=== PATIENT | female | born 1945 | race Caucasian/White ===

== ENCOUNTER 2018-07-18 23:02 | Inpatient (IN) | payer MEDICARE ==
[~2018-07-18] VITALS: Ht 165.1 cm; Wt 70.5 kg
--- NOTE | ~2018-07-18 | CN ---
PATIENT NAME:ALLA TINEO. MEDICAL RECORD: [id number] : 47 LOCATION:D.M2 D.2116 ADMIT DATE: 07/19/18 ACCOUNT: [id number] CONSULTING PHYSICIAN: NELSON MONDRAGON MD REFERRING PHYSICIAN: ROBY TOM DO DATE OF CONSULTATION: 07/19/2018 DIAGNOSES: 1. Syncope. 2. Chest pain compatible with angina. 3. Chronic back pain with multiple previous back surgeries. HISTORY: Ms. Tineo has no cardiac history. She began complaining of chest pain that radiated to her jaw, told her yesterday. He was getting dressed to take her to the hospital. When he came back in the room, she was face down on the floor. He did CPR for less than a minute and this brought her back. She has not had any further episodes of chest pain. Since being on telemetry, she has had sinus bradycardia down to the 40s. She is on no AV blocking medication. She has had no heart rates less than 40, and with the 44 heart rate, she did not have any hemodynamic compromise or symptoms of syncope or near syncope. PHYSICAL EXAMINATION: GENERAL APPEARANCE: Well-nourished, well-developed, appears stated age. Level of distress, comfortable. PSYCHIATRIC: Mental status, alert, normal affect. Orientation, oriented to time, place and person. EYES: Lids and conjunctiva, noninjected. No discharge, no pallor. ENT: Lips, teeth, gums, normal dentition. Oropharynx, no cyanosis, no pallor. NECK: Carotid arteries, bilateral normal upstroke, no bruits, no thrills. JUGULAR VEINS: No jugular venous pressure or distention. CERVICAL LYMPH NODES: Nontender, nonenlarged. THYROID: Not enlarged. Nontender. No nodules. LUNGS: Respiratory effort, unlabored. CHEST: Normal curvature. No thoracic deformity. No chest wall tenderness. Percussion, resonant. Auscultation, clear. No wheezes, no rales, no rhonchi. CARDIOVASCULAR: Precordial exam, nondisplaced. No heaves or pericardial thrills. Rate and rhythm, regular. Heart sounds, normal S1, normal S2. No S3, no gallop, no rub. Systolic murmur, not heard. Diastolic murmur, not heard. EXTREMITIES: No cyanosis, no edema. Peripheral pulses, full and equal in all extremities, except as noted. No bruits appreciated. ABDOMEN: Soft, nondistended. Normal aorta. No bruit. Nontender. No masses. Liver, nontender, no hepatomegaly. Spleen, nontender, no splenomegaly. MUSCULOSKELETAL: No joint tenderness. No joint swelling. No erythema. NEUROLOGICAL: Normal gait, normal strength, normal tone. SKIN: Warm and dry. OVERALL IMPRESSION: Chest pain with syncope, very suggestive of dysrhythmia. We will proceed with coronary angiography. Continue telemetry. We will also get echocardiogram. Further care depends upon findings of these studies. TRANSINT:[id number] Voice Confirmation ID: [id number] DOCUMENT ID: [id number] CONSULT REPORT [id number] ALLA TINEO. NELSON MONDRAGON MD at 1950 CC: [id number] DICTATION DATE: 07/19/18 1111 CONSUMER ADVOCATE: 07/19/18 1137 DIS IN 07/20/18 [place] [id number] [place] [address]
--- NOTE | ~2018-07-18 | HEMODYNAMI ---
PATIENT:ALLA TINEO. MEDICAL RECORD: [id number] : 47 [facility]D. D.2116 [id number] ADMISSION DATE: 07/19/18 Generatedon:07/19/201812:53 Patient name: ALLA TINEO Patient #: [id number] SSN: : 1945 Date of study: 07/19/2018 Page: Of Hemodynamic Procedure Report Patient Data Patient Demographics Procedure consent was obtained First Name: ALLA Gender: Female Last Name: RIVKA : 1945 Middle Initial: ELIJAH. Age: 72 year(s) Patient #: [id number] Race: Unknown Additional ID: [id number] Contact details Address: [place] [address] State: [place] City: [place] Zip code: [address] Admission Admission Data Admission Date: 07/19/2018 Admission Time: 1:13 Room #: D.2116 Procedure Procedure Types Cath Procedure Diagnostic Procedure LHC LHC w/Coronaries Peripheral Cath Diagnostic Procedure Cath Peripheral Four Vessel Arteriogram Procedure Description Procedure Date Procedure Date: 07/19/2018 Procedure Start Time: 12:40 Procedure End Time: 12:49 Procedure Staff Name Function Severino Healy MD Performing Physician Lottie Vail RT Monitor Cristin Coley RN Nurse Juliette Lui RT Scrub Procedure Data Cath Procedure Fluoroscopy Diagnostic fluoroscopy Total fluoroscopy Time: 1.6 time: 1.6 min min Diagnostic fluoroscopy Total fluoroscopy dose: 332 dose: 332 mGy mGy Contrast Material Contrast Material Type Amount (ml) Isovue 300 68 Entry Location Entry Primary Successful Side Size Upsize Upsize Entry Closure Succes sful Closure Location (Fr) 1 (Fr) 2 (Fr) Remarks Device Remarks Femoral Right 5 Fr Exoseal artery Estimated blood loss: 5 ml Diagnostic catheters Device Type Used For End Catheter Placement MULTIPACK Pigtail 5 Fr LV Angiography catheter MULTIPACK JL 4.0 5Fr Left Coronary catheter Angiography MULTIPACK 3DRC 5Fr Right Coronary catheter Angiography Procedure Complications No complications Procedure Medications Medication Administration Route Dosage Oxygen etCO2 Nasal cannula 2 l/min Lidocaine 2% added to field 20 Heparin Flush Bag added to field 2 bags (1000units/500ml NS) 0.9% NaCl I.V. 100 ml/hr Versed I.V. 1 mg Fentanyl I.V. 50 mcg Versed I.V. 1 mg Fentanyl I.V. 50 mcg Hemodynamics Rest Heart Rate: 53 (bpm) Pressure Samples Time Site Value (mmHg) Purpose Heart Use Rate(bpm) 12:42 LV 132/10,14 Snapshot 67 Snapshots Pre Cath Intra NCS Post Cath Vital Signs Time Heart Resp SPO2 etCO2 NIBP (mmHg) Rhythm Pain Sedation Rate (ipm) (%) (mmHg) Status Level (bpm) 12:30:17 54 15 100 30.8 119/75(98) NSR 0 (11) 9(A) , No pain 12:34:57 55 14 99 23.3 116/69(89) NSR 0 (11) 9(A) , No pain 12:39:40 59 14 99 30.8 126/76(105) NSR 0 (11) 9(A) , No pain 12:44:23 70 15 97 24.8 122/75(93) NSR 0 (11) 9(A) , No pain 12:49:04 71 13 99 30.8 126/71(91) NSR 0 (11) 9(A) , No pain 12:51:17 72 13 99 24.1 118/67(94) NSR 0 (11) 10(A) , No pain Medications Time Medication Route Dose Verified Delivered Reason Notes Eff ectiveness by by 12:29:30 Oxygen etCO2 2 Severino Liaoie used for Nasal l/min Niraj Coley RN procedure cannula 12:30:16 Lidocaine 2% added 20ml Severino Haq for local to vial Niraj Healy MD anesthetic field 12:30:23 Heparin Flush added 2 Severino Severino used for Bag to bags Niraj Healy MD procedure (1000units/500ml field NS) 12:30:31 0.9% NaCl I.V. 100 Severino Liaoie Per ml/hr Niraj Coley RN physician 12:39:59 Versed I.V. 1 mg Severino Amaral for Niraj Coley RN sedation 12:40:04 Fentanyl I.V. 50 Severino [facility] [place] Niraj Coley RN sedation 12:45:26 Versed I.V. 1 mg Severino Coley RN sedation 12:45:31 Fentanyl I.V. 50 Severino [facility] [place] Niraj Coley RN sedation Procedure Log Time Note 12:09:20 Diagnostic Cath status Elective 12:09:23 Lottie Vail RT(R) sent for patient. Start room use. 12:09:25 Time tracking: Call back (After hours or weekends) 12::31 Plan of Care:Hemodynamics will remain stable., Cardiac rhythm will remain stable., Comfort level will be maintained., Respiratory function will remain adequate., Patient/ family verbilizes understanding of procedure., Procedure tolerated without complication., Recovers from procedure without complications.. 12:19:12 Patient received from Med II to CCL 1 Alert and oriented. Tansferred to table in Supine position. 12:19:13 Warm blankets applied, and geovanni hugger turned on for patient comfort. 12:19:14 Correct patient and procedure confirmed by team. 12:19:15 Signed procedure consent form obtained from patient. 12:19:16 Vital chart was started 12:19:17 Baseline sample Acquired. 12:19:22 Rhythm: sinus rhythm 12:19:23 Full Disclosure recording started 12:19:28 H&P Date Dictated: 07/19/2018 Within 30 days and on chart., H&P Addendum completed by physician on day of procedure. (MUST COMPLETE FOR ALL OUTPATIENTS). 12:19:30 Pre-procedure instructions explained to patient. 12:19:30 Pre-op teaching completed and patient verbalized understanding. 12:19:31 Family in waiting room. 12:19:34 Patient NPO since Midnight. 12:19:35 Is the patient allergic to Iodine/contrast media? No. 12:19:37 Was the patient premedicated? No 12:19:38 Is patient on blood thinner?No 12:19:39 Patient diabetic? No. 12:19:42 Previous problem with sedation/anesthesia? No ? 12:19:44 Snore? Yes 12:19:45 Sleep apnea? No 12:19:46 Deviated septum? No 12:19:46 Opens mouth fully? Yes 12:19:47 Sticks out tongue? Yes 12:19:49 Airway obstruction? No ? 12:19:54 Dentures? No ? 12:19:58 Pre procedure: right dorsailis pedis pulse 1+ Palpable, but thready & weak; easily obliterated 12:20:02 Pre procedure: left dorsailis pedis pulse 1+ Palpable, but thready & weak; easily obliterated 12:20:09 Patient pain scale 0/10 ?. 12:20:22 IV patent on arrival in left forearm with 0.9% NaCl at [facility]. 12:20:25 Lab results completed and on chart. 12:20:31 Right groin area was prepped with chlora-prep and draped in sterile fashion 12::32 Alarms reviewed by R. N. 12::32 Sharps counted by scrub and verified by R.N. 12::34 Physician paged 12:29:30 Oxygen 2 l/min etCO2 Nasal cannula was administered by Cristin Coley RN; used for procedure; 12:30:16 Lidocaine 2% 20ml vial added to field was administered by Severino Healy MD; for local anesthetic; 12:30:23 Heparin Flush Bag (1000units/500ml NS) 2 bags added to field was administered by Severino Healy MD; used for procedure; 12:30:31 0.9% NaCl 100 ml/hr I.V. was administered by Cristin Coley RN; Per physician; 12:33:27 Zero performed for pressure channel P1 12:39:46 Physician arrived 12:39:46 --------ALL STOP TIME OUT------ 12:39:47 Final Timeout: patient, procedure, and site verified with staff and physician. All members of the team are in agreement. 12:39:49 Right groin site verified by team. 12:39:52 Physical assessment completed. ASA score P 2 - A patient with mild systemic disease as per Severino Healy MD. 12:39:56 Sedation plan: IV Moderate Sedation Medication:Versed, Fentanyl 12:39:59 Versed 1 mg I.V. was administered by Cristin Coley RN; for sedation; 12:40:04 Fentanyl 50 mcg I.V. was administered by Cristin Coley RN; for sedation; 12:40:41 Use device set Femoral Dx 12:40:42 ACIST Syringe (11912) opened to sterile field. 12:40:43 Bag Decanter () opened to sterile field. 12:40:43 Medline Cath Pack ([id number]) opened to sterile field. 12:40:44 DIAGNOSTIC WIRE .035 260cm J wire (257954) opened to sterile field. 12:40:45 ACIST Hand Control (11820) opened to sterile field. 12:40:46 ACIST Manifold (68228) opened to sterile field. 12:40:46 DIAGNOSTIC Multipack 5Fr catheter set (DC0157) opened to sterile field. 12:40:49 Tegaderm 4 x 4 (1626W) opened to sterile field. 12:40:50 SHEATH Prelude 5Fr 0.035 (PDU-4R-24-035) opened to sterile field. 12:40:54 Procedure started. 12:40:57 Local anesthetic to right femoral artery with Lidocaine 2% by Severino Healy MD.INITIAL ACCESS ONLY 12:41:06 A 5 Fr sheath was inserted into the Right Femoral artery 12:41:53 A MULTIPACK Pigtail 5 Fr catheter was advanced over the wire and used for LV Angiography. 12:43:00 LV hemodynamics recorded. 12:43:01 LV gram done using CARDENAS 12:43:03 Injector settings: Ml/sec: 5, Volume: 15, 12:43:10 EF : 50 % 12:43:32 Catheter removed. 12:43:39 A MULTIPACK JL 4.0 5Fr catheter was advanced over the wire and used for Left Coronary Angiography. 12:43:59 LCA angiography performed. 12:44:04 Injector settings: Ml/sec: 3, Volume: 6, 12:44:33 Catheter removed. 12:44:42 A MULTIPACK 3DRC 5Fr catheter was advanced over the wire and used for Right Coronary Angiography. 12:45:21 RCA angiography performed. 12:45:26 Versed 1 mg I.V. was administered by Cristin Coley RN; for sedation; 12:45:29 Injector settings: Ml/sec: 3, Volume: 6, 12:45:31 Fentanyl 50 mcg I.V. was administered by Cristin Coley RN; for sedation; 12:45:42 Bilateral carotid angiography performed. 12:46:40 Catheter removed. 12:46:43 EXOSEAL 5Fr (EX500) opened to sterile field. 12:47:03 Sheath removed intact; hemostasis achieved with Exoseal to the Right Femoral artery. 12:47:05 Procedure ended.(Physican Out) 12:47:22 Fluoroscopy time 01.60 minutes. 12:47:29 Fluoroscopy dose: 332 mGy 12:47:29 Flurop Dose total: 332 12:47:33 Contrast amount:Isovue 300 68ml. 12:48:19 Sharps counted by scrub and verified by R.N. 12:48:21 Insertion/operative site no bleeding no hematoma. 12:48:24 Post-op/insertion site Right Femoral artery dressed using a 4 x 4 and Tegaderm. 12:48:26 Post right femoral artery:stable 12:48:28 Post Procedure Pulses reassessed and unchanged 12:48:30 Post procedure rhythm: unchanged. 12:48:33 Estimated blood loss: 5 ml 12:48:35 Post procedure instruction explained to patient.Patient verbalizes understanding. 12:48:35 Patient needs reinforcement of post procedure teaching. 12:49:02 Procedure type changed to Cath procedure, Diagnostic procedure, LHC, LHC w/Coronaries, Peripheral Cath Diagnostic Procedure, Cath Peripheral, Four Vessel Arteriogram 12:49:03 Procedure and supply charges have been captured, reviewed, submitted and are correct. 12:49:07 Procedure Complication : No complications 12:49:10 Vital chart was stopped 12:49:10 See physician's report for complete and final results. 12:49:12 Report given to [facility]. 12:49:16 Patient transfered to [facility] with Stretcher. 12:49:19 Procedure ended. 12:49:19 Full Disclosure recording stopped 12:49:23 End room use (Document Last) Device Usage Item Name Manufacture Quantity Catalog Number Hospital Part Current M inimal Lot# / Charge Number Stock Stock Serial# Code ACIST Syringe Acist 1 46575 929305 986351 539049 2 0 (58661) [employer] Bag Decanter Microtek 1 839403 09328 286550 5 () Medical Inc. Medline Cath Cardinal 1 [id number] 159643 [address] [facility] ([id number]) DIAGNOSTIC WIRE St Del 1 071355 319093 272192 642555 3 0 .035 260cm J wire (752580) ACIST Hand Acist 1 17364 343146 059238 287248 5 Control (33605) [employer] ACIST Manifold Acist 1 94487 939284 928640 274562 5 (66877) [employer] DIAGNOSTIC Cardinal 1 [id number] 028036 55114 643002 3 0 Multipack 5Fr Health catheter set ([id number]) Tegaderm 4 x 4 3M 1 1626W 404991 437934 521402 5 (1626W) SHEATH Prelude Merit 1 [id number] 355677 293772 893713 5 5Fr 0.035 Medical ([id number]) MULTIPACK Cardinal 1 877341 5 Pigtail 5 Fr Health catheter MULTIPACK JL Cardinal 1 [id number] 5 4.0 5Fr Health catheter MULTIPACK 3DRC Cardinal 1 614141 5 5Fr catheter Health EXOSEAL 5Fr Cardinal 1 EX500 599247 618719 384553 1 0 (EX500) Health Signature Audit [place] Stage Time Signature Unsigned Intra-Procedure 07/19/2018 Lottie Vail 12:53:48 PM RT(R) Signatures Monitor : Lottie Vail RT Signature : Date : Time : [facility] [address] [place] [address]
--- NOTE | ~2018-07-18 | HP ---
PATIENT: ALLA TINEO. MEDICAL RECORD: [id number] ACCOUNT: [id number] LOCATION:[place] [id number] : 46 ADMISSION DATE: 07/19/18 HISTORY AND PHYSICAL EXAMINATION HISTORY: A 72-year-old female presented to the Emergency Room with a syncopal episode. found her face down at home, unresponsive, did perform brief CPR. She quickly aroused, brought in for evaluation. No cardiac history. Denies any acute illness. PAST MEDICAL HISTORY: Significant for anxiety, depression, hypothyroidism, and chronic back pain. CURRENT MEDICATIONS: Listed as Neurontin 300 mg t.i.d., Valium 10 mg b.i.d., oxycodone 10/325 q. 6 p.r.n. pain, Lipitor 20 mg daily, Synthroid 88 mcg daily, Uroxatral 10 mg daily, Soma 350 mg at bedtime, Ambien 10 mg at bedtime, Xanax 1 mg p.o. daily, and Lexapro 10 mg daily. REVIEW OF SYSTEMS: CONSTITUTIONAL: No acute change in weight or appetite. HEENT: No cephalgia, visual changes, tinnitus, epistaxis, or dysphagia. Syncopal event as noted above. PULMONARY: Denies hemoptysis. Denies shortness of breath. GASTROINTESTINAL: Denies hematemesis, hematochezia, or melena. CARDIOVASCULAR: Denies chest pain presently. Reported anginal symptoms prior to syncopal episode. MUSCULOSKELETAL: Chronic back pain, on multiple medications. ALLERGIES: SULFA. PHYSICAL EXAMINATION: GENERAL: The patient is lethargic and somewhat sedated, but responsive. 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 VITAL SIGNS: Temperature 97.5, blood pressure 112/77, heart rate 83, respirations 18, O2 sat 96% on 2 liters via nasal cannula. HEENT: Head is normocephalic and atraumatic. Eyes; pupils are equal, round, and reactive. Ears; canals patent. TMs are intact. Nose; nares patent without drainage. Throat; no erythema and no exudate. NECK: Supple. No lymphadenopathy. HEART: Regular rate and rhythm. LUNGS: Clear to auscultation bilaterally. Breathing is nonlabored. ABDOMEN: Soft and nontender. Bowel sounds in all 4 quadrants. EXTREMITIES: Present times 4. Trace edema. NEUROLOGIC: Limited exam due to post-catheterization sedation but no appreciable deficits. Arouses easily to verbal stimuli and answers appropriately. DIAGNOSTIC DATA: EKG shows sinus bradycardia. I discussed cath results with Dr. Healy. She had a negative 4-vessel and negative heart cath. No obstructive disease. LABORATORY DATA: CBC; white count 5.8, hemoglobin 11.5, hematocrit 35.5, and platelets 191. Chemistry shows sodium of 142, potassium 4.0, chloride 108, bicarb 28, BUN 21, and creatinine 1.4. HISTORY AND PHYSICAL [id number] ALLA TINEO. ASSESSMENT AND PLAN: Witnessed syncopal event. She did have some slow heart rates. We will monitor the patient on telemetry. Negative 4-vessel and negative heart cath. Possible relation to event related to pain and anxiolytic medications. We will continue to monitor the patient. Supportive care. TRANSINT:[id number] Voice Confirmation ID: [id number] DOCUMENT ID: [id number] EFRAÍN MCGOVERN DO at 1440 CC: [id number] DICTATION DATE: 07/19/18 1334 PASTA PRESS OPERATOR: 07/19/18 1437 ADM IN [facility] [address] [place] [place] [id number]
--- NOTE | ~2018-07-18 | OP ---
PATIENT NAME: ALLA TINEO. MEDICAL RECORD: [id number] :47 LOCATION:D.M2 D.2116 ADMISSION DATE:07/19/18 SURGEON: NELSON MONDRAGON MD DATE OF OPERATION: 07/19/2018 PROCEDURES: 1. Left heart catheterization. 2. Selective coronary angiography. 3. Left ventriculogram. 4. Four-vessel carotid and vertebral angiography. INDICATION: Syncope, chest pain. PROCEDURE IN DETAIL: After informed consent was obtained and after a detailed description of risks, benefits as well as alternative therapies, the patient elected to proceed with angiogram and heart catheterization. The right femoral area was prepped and draped in normal sterile fashion. Right femoral artery was cannulated via modified Seldinger technique with placement of 5-[place] sheath. All catheters exchanged through this sheath. FINDINGS: The left ventriculogram was performed in standard 30-degree CARDENAS view, reveals good cardiac wall motion throughout all segments. Overall ejection fraction estimated 60%. SELECTIVE CORONARY ANGIOGRAPHY: Left main, left anterior descending, left circumflex, right coronary artery are smooth-walled vessels. No angiographic evidence of coronary artery disease. FOUR-VESSEL CAROTID AND VERTEBRAL ANGIOGRAPHY: There was subselection of each subclavian as well as the left carotid. FINDINGS: RIGHT SIDE: The common internal and external carotids are smooth-walled with no evidence of carotid vascular disease. Vertebral artery has no evidence of vertebral artery disease. LEFT SYSTEM: The common internal and external carotids are smooth-walled with no evidence of carotid vascular disease. Vertebral artery has no significant disease as well. OVERALL IMPRESSION: 1. No significant coronary artery disease is present. 2. No significant carotid disease is present. 3. Normal LV function. No reason to think symptomatology is secondary to cardiovascular. TRANSINT:[id number] Voice Confirmation ID: [id number] DOCUMENT ID: [id number] OPERATIVE REPORT [id number] ALLA TINEO. NELSON MONDRAGON MD at 1950 CC: [id number] DICTATION DATE: 07/19/18 1251 DISTRICT LEADER: 07/19/18 1256 DIS IN 07/20/18 [facility] [address] [place] [address]
[~2018-07-18 23:02] MED LIST: AMBIEN10 MG PO; LEXAPRO10 MG PO; LIPITOR20 MG PO; MEDROL DOSE PACK4 MG PO; NEURONTIN 300300 MG PO; PERCOCET 10/3251 TA1 PO; SOMA350 MG PO; SYNTHROID88 MCG PO; UROXATRAL10 MG PO; VALIUM10 MG PO; XANAX1 MG PO
[2018-07-18 23:59] LABS: BASOPHILS 0.3 % (0-2); EOSINOPHILS 3.4 % (0-7); HEMATOCRIT 35.5 % (36.0-48.0); HEMOGLOBIN 11.5 g/dL (12-16); IMMATURE GRANULOCYTES 0.3 % (0-5); LYMPHOCYTES 25.6 % (15-50); MCH 28.9 pg (26.0-34.0); MCHC 32.4 g/dL (31.0-37.0); MCV 89.2 fL (80.0-100.0); MEAN PLATELET VOLUME 9.7 fL (7.4-10.4); MONOCYTES 7.9 % (2-11); NEUTROPHILS 62.5 % (40-80); PLATELET COUNT 191 10x3/uL (130-400); RBC 3.98 10x6/uL (4.00-5.40); RDW 14.8 % (11.5-14.5); WBC 5.8 10x3/uL (4.8-10.8)
[2018-07-19] VITALS (7 sets, daily range): BP systolic 101–151; BP diastolic 45–93; Ht 165.1 cm; Wt 70.5 kg
[2018-07-19 00:03] LABS: APTT 27.3 SECONDS (22.8-39.4); INR 0.98 (0.85-1.17); PROTIME 12.6 SECONDS (11.6-15.0)
[2018-07-19 00:05] LABS: ALKALINE PHOSPHATASE 80 U/L (46-116); ALT (SGPT) 20 U/L (10-68); BILIRUBIN - TOTAL 0.29 mg/dL (0.2-1.3); CALC OSMOLALITY 285 mosm/kg (275-300); CALCIUM 8.7 mg/dL (8.5-10.1); CARBON DIOXIDE 28.1 mmol/L (21.0-32.0); CHLORIDE - SERUM 108 mmol/L (98-107); CREATININE - SERUM 1.4 mg/dL (0.6-1.3); GLUCOSE 104 mg/dL (74-106); PROTEIN - SERUM 7.1 g/dL (6.4-8.2); SODIUM 142 mmol/L (136-145); UREA NITROGEN 21 mg/dL (7-18); eGFR NON AFRICAN AMERICAN 39 mL/min (90-120)
[2018-07-19 00:13] LABS: CREATINE KINASE 67 UL (21-215); PRO BNP 269 pg/mL (0-125)
[2018-07-19 00:14] LABS: TROPONIN-I < 0.017 ng/mL (0.000-0.060)
[2018-07-19] MEDS ORDERED: HYDROCODONE-APA1 TAB PO (01:48)
[2018-07-19] MEDS ORDERED: LIPITOR40 MG PO (01:49)
[2018-07-20 00:43] VITALS: BP 150/57
[2018-07-20 04:34] LABS: BASOPHILS 0.4 % (0-2); EOSINOPHILS 3.8 % (0-7); HEMATOCRIT 34.3 % (36.0-48.0); HEMOGLOBIN 10.8 g/dL (12-16); IMMATURE GRANULOCYTES 0.2 % (0-5); LYMPHOCYTES 34.3 % (15-50); MCH 28.6 pg (26.0-34.0); MCHC 31.5 g/dL (31.0-37.0); MONOCYTES 8.8 % (2-11); NEUTROPHILS 52.5 % (40-80); PLATELET COUNT 187 10x3/uL (130-400); RBC 3.77 10x6/uL (4.00-5.40); RDW 14.9 % (11.5-14.5); WBC 5.6 10x3/uL (4.8-10.8)
[2018-07-20 04:58] LABS: ALBUMIN 3.3 g/dL (3.4-5.0); ANION GAP 12.3 mmol/L (8-16); BILIRUBIN - TOTAL 0.28 mg/dL (0.2-1.3); CALCIUM 8.2 mg/dL (8.5-10.1); CARBON DIOXIDE 25.5 mmol/L (21.0-32.0); CREATININE - SERUM 1.2 mg/dL (0.6-1.3); MAGNESIUM - SERUM 2.3 mg/dL (1.8-2.4); PHOSPHOROUS 3.5 mg/dL (2.5-4.9); POTASSIUM - SERUM 3.8 mmol/L (3.5-5.1); PROTEIN - SERUM 6.2 g/dL (6.4-8.2)
[2018-07-20 05:51] VITALS: BP 134/60
[2018-07-20 07:49] VITALS: BP 172/87
== END 2018-07-20 10:35 | disposition home or self-care (01) | DRG 287 ==
LOC: D.ER 23:02 → D.M2 07-19 01:13
PROVIDERS: Emergency Medicine; Family Medicine; Internal Medicine Interventional Cardiology
PROC: 4A023N7 Measurement of Cardiac Sampling and Pressure, Left Heart, Percutaneous Approach (ICD-10-PCS; 2018-07-19)
PROC: B3151ZZ Fluoroscopy of Bilateral Common Carotid Arteries using Low Osmolar Contrast (ICD-10-PCS; 2018-07-19)
PROC: B3121ZZ Fluoroscopy of Left Subclavian Artery using Low Osmolar Contrast (ICD-10-PCS; 2018-07-19)
PROC: B2111ZZ Fluoroscopy of Multiple Coronary Arteries using Low Osmolar Contrast (ICD-10-PCS; principal; 2018-07-19 12:09)
PROC: B2141ZZ Fluoroscopy of Right Heart using Low Osmolar Contrast (ICD-10-PCS; 2018-07-19 12:09)
DX: R55 Syncope and collapse (principal); R07.9 Chest pain, unspecified; F41.9 Anxiety disorder, unspecified; F32.9 Major depressive disorder, single episode, unspecified; E03.9 Hypothyroidism, unspecified; G89.29 Other chronic pain; T50.995A Adverse effect of other drugs, medicaments and biological substances, initial encounter

== ENCOUNTER 2018-08-24 08:58 | Inpatient (IN) | payer MEDICARE, OTHER ==
[~2018-08-24] VITALS: Ht 167.6 cm; Wt 71.1 kg
--- NOTE | ~2018-08-24 | EC ---
PATIENT:ALLA TINEO DATE OF SERVICE: 08/24/18 SEX: F MEDICAL RECORD: [id number] DATE OF : 47 LOCATION:[place] [address] AGE OF PATIENT: 73 ADMISSION DATE: 08/24/18 REFERRING PHYSICIAN: INTERPRETING PHYSICIAN: NELSON HEALY MD ECHOCARDIOGRAM REPORT ECHO CHARGES 5 ECHO LIMITED Date: 08/25/18 CLINICAL DIAGNOSIS: SOB PE ECHOCARDIOGRAPHIC MEASUREMENTS (adult normal given) AC root (d.<3.7cm) cm LV Septum d (<1.2 cm> cm Valve Excursion cm LV Septum (systole) cm Left Atria (s.<4.0cm> cm LVPW d(<1.2cm) cm RV (d.<2.3cm) cm LVPW (sytole) cm LV diastole(<5.6CM) cm MV E-F(>70mm/sec) cm LV systole cm LVOT Diameter cm MV exc.(>10mm) cm Est.ejection fraction (50-75%) % DOPPLER: LVIT cm/sec A cm/sec E cm/sec LA cm/sec RVSP 34.2 mmHg LVOT cm/sec AOP1/2T m/s Asc. Ao cm/sec RVOT cm/sec RA cm/sec PA cm/sec AV Gradient Peak mmHg AV Mean mmHg AV Area cm MV Gradient Peak mmHg MV Mean mmHg MV Area cm COMMENTS: Supply Chain Business Analyst: Leonard MCKINLEY Molecular Physicist: Sahara Healy TAPE# PACS Pericardial Effusion N DATE OF SERVICE: 08/25/2018 DATE OF SERVICE: 08/25/2018 FINDINGS: 1. Left ventricular chamber size is within normal limits. Left ventricular systolic function is normal. Overall ejection fraction estimated at 60%. 2. Left atrium, right atrium, and right ventricle chamber sizes are within normal limits. 3. Valvular structures have normal structure and motion. ECHOCARDIOGRAM REPORT [id number] ALLA TINEO 4. Doppler interrogation reveals only mild tricuspid regurgitation, no other valvular insufficiency or stenosis. 5. No evidence of pericardial effusion or left ventricular thrombus. TRANSINT:[id number] Voice Confirmation ID: [id number] DOCUMENT ID: [id number] NELSON HEALY MD at 0924 CC: [id number] DICTATION DATE: 08/26/18 1159 PHLEBOTOMIST PRN: 08/26/18 1209 ADM IN [facility] [address] [facility]
--- NOTE | ~2018-08-24 | OP ---
PATIENT NAME: ALLA TINEO MEDICAL RECORD: [id number] :47 LOCATION:D.I D.CV08 ADMISSION DATE:08/24/18 SURGEON: DAISHA COLLINS MD DATE OF OPERATION: 08/30/2018 SURGEON: Daisha Collins MD ANESTHESIA: General, Dr. Greer. SECOND GRADE TEACHER: Dr. Rodriguez. OPERATION PERFORMED: 1. Right video-assisted thoracoscopy. 2. Right lower lobe biopsy. 3. Pleural biopsy. 4. Pleurodesis, mechanical and talc. 5. Culture of pleural fluid for aerobe, anaerobe, TB, and fungus. Left and right bronchioalveolar lavage for aerobe, anaerobe, TB, and fungus as well as cytology. Flexible fiberoptic bronchoscopy demonstrated no endobronchial lesions. ESTIMATED BLOOD LOSS: Less than 20 mL. DESCRIPTION OF PROCEDURE: After informed consent, adequate preoperative medication evaluation, the patient was brought to the operating room, placed on the table in the supine position. After induction of general endotracheal anesthesia and application of appropriate monitoring devices and placement of a double lumen tube, the patient was turned in a left lateral decubitus position, protecting the neurological structures and pressure points. The right chest was prepped and draped in a sterile field, utilizing Betadine scrub, alcohol, and Betadine solution. A Betadine-impregnated drape was also used. The mid axillary line identified in the ninth interspace. An incision was made and a trocar placed. The camera was inserted. The chest was examined and the fluid was removed for cultures and cytology. The lung was abnormal and texture with multiple nodules utilizing an Endo-FLASH stapler after 2 more ports were placed, one anteriorly and one posteriorly. The lung was biopsied, placed in a pouch and sent to pathology for frozen section. The remainder is sent for permanent section. The small amount of tissue resected off this specimen was also sent for aerobe, anaerobe, TB, and fungus. Attention was then turned toward the chest wall. The chest wall lesions were biopsied and sent to pathology for permanent section. The chest was again irrigated. There was no bleeding. Utilizing Marlex, a mechanical pleurodesis was performed followed by a talc pleurodesis. A #28 chest tube was placed in the anterior port, confirmed with the camera. Instrument count and sponge counts were correct times 2. The 2 extra port sites were closed with interrupted 2-0 Ethibond sutures. Sterile dressings were applied. The patient was turned supine and the endotracheal tube was exchanged for a large tracheal tube. The patient underwent flexible fiberoptic bronchoscopy. There were no endobronchial lesions noted. A right and left bronchial alveolar lavage was performed and the cultures sent for aerobe, anaerobe, TB, and fungus. A separate specimen from each were sent for cytology. The patient was awakened, tolerated the procedure well and was transferred to the ICU in stable condition. TRANSINT:[id number] Voice Confirmation ID: [id number] DOCUMENT ID: [id number] OPERATIVE REPORT [id number] ALLA TINEO EDWARD MD at 1216 CC: [id number] DICTATION DATE: 08/30/18 125 APPLIANCE WORKER: 08/30/18 1709 ADM IN [facility] [address] [place] [address]
--- NOTE | ~2018-08-24 | MORECARE ---
CASE MANAGEMENT DISCHARGE SUMMARY PATIENT: ALLA CROW UNIT: [id number] ADM DATE: 08/24/18 AGE: 73 : [birth year] SEX: F ROOM/BED: [facility] AUTHOR: ALICIADOC PHYSICIAN: REFERRING PHYSICIAN: NELSON TOM DO DATE OF SERVICE: 09/07/18 Discharge Plan Patient Name: ALLA CROW Facility: [facility]:[place] : 1945 Planned Disposition: Home Anticipated Discharge Date: Discharge Date: Expected LOS: Initial Reviewer: [email or web address] Initial Review Date: 08/25/2018 Generated: 09/07/18 11:10 am Comments DCP- Discharge Planning Updated by [id number]: Erin Alexander on 09/07/18 9:[address] IMM explained and served 09/07/18 @ 0918. Patient denies any discharge needs. CM will continue to follow and assist with discharge planning / needs. DCP- Discharge Planning Updated by [id number]: Marisol Beckford on 08/25/18 2:[address] Patient Name: ALLA CROW Admission Status: Elective Accout number: [id number] Admission Date: 08-24-2018 : 1945 Admission Diagnosis: Attending: Nelson Tom Current LOS: 1 Anticipated DC Date: Planned Disposition: Home Primary Insurance: MEDICARE A & B Discharge Planning Comments: CM met with patient to discuss discharge planning. Verbal permission received to discuss discharge planning with her and daughter in the room. She states she lives with her and is independent with all ADL's and IADL's. States she does not have any DME or need any DME at this time. States she does not have DME company preference. States she has had HHS in the past, but declines HHS at this time. States she is unsure which agency she has used in the past. She is wearing oxygen at 4L [place] at this time. CM will continue to follow and evaluate for needs on discharge. Copy Cutter: Marisol Beckford DCPIA - Discharge Planning Initial Assessment Updated by [email or web address]: Marisol Beckford on 08/25/18 3:44 pm * Is the patient Alert and Oriented? Yes * How many steps to enter\exit or inside your home? 1/0 * PCP Jose * Pharmacy [facility] [address] * Preadmission Environment Home with Family * ADLs Independent * Equipment None * List name and contact numbers for known caregivers / representatives who currently or will assist patient after discharge: Herbert Crow - - [phone] Maya - daughter - [phone] * Verbal permission to speak to the caregivers and representatives has been obtained from the patient. Yes * Community resources currently utilized None * Additional services required to return to the preadmission environment? No * Can the patient safely return to the preadmission environment? Yes * Has this patient been hospitalized within the prior 30 days at any hospital? No Coverage Notice Reviewer: [email or web address] Nikia Alexander Notice Issued Date-Time: 09/07/2018 9:18 Notice Type: IM Discharge Notice Notice Delivered To: Patient Relationship to Patient: Self Record Retrieval Specialist Name: Delivery Method: HAND - Hand Delivered Kavitha Days: Prior Verbal Notification: Recipient Understood Notice: Yes Recipient Signature: Yes Med Rec Note Co-signed by Attending: Coverage Notice Comment: Last DP export: 08/25/18 2:53 Patient Name: ALLA CROW Page [id number] at 1011 All edits/amendments must be made on the electronic document DICTATION DATE: 09/07/18 1010 HEATSET WINDER OPERATOR: IKE 09/07/18 1010 RPT#: [id number] DC DATE: STATUS: ADM IN [facility] [address] [place] [address] END OF REPORT
--- NOTE | ~2018-08-24 | HP ---
PATIENT: ALLA TINEO MEDICAL RECORD: [id number] ACCOUNT: [id number] LOCATION:D.MS Camargo5 : [birth year] ADMISSION DATE: 08/24/18 PCP: ROBY TOM DO HISTORY AND PHYSICAL EXAMINATION HISTORY: Ms. Tineo is a 73-year-old lady who was seen in the office today. She had been complaining of cough for several days with shortness of breath. She is being treated for some low back issues and has been getting some injection. She has a history of low back surgery several years ago. She had been hospitalized for a syncopal episode about a month ago. At that point, she had undergone a heart cath with Dr. Healy of 4 vessels with negative heart cath. She was monitored for bradycardia and there was none. At that point, there was no shortness of breath or chest discomfort and she was discharged home. She today had got an x-ray prior to coming in the office, which did show some right pleural effusion, atelectasis versus possible infiltrate. On evaluation here, she was tachypneic. Her sats were holding around 94%, but she appeared to be in qsmt-vv-onrliood distress. We sent her over for a CTA of the chest, which showed PE on the right, and she was admitted for further evaluation and treatment. PAST MEDICAL HISTORY: She does have past medical history of hypertension, hypothyroidism, hyperlipidemia, history of depression, and GERD in the past. She has had some situational anxiety in her life over the last 6-9 months, which has been quite severe. She has also history of some chronic low back pain with history of lumbar surgery in the past. PAST SURGICAL HISTORY: Her other pertinent surgical history is hysterectomy in 2005. SOCIAL HISTORY: She does not smoke, use alcohol or drugs. MEDICATIONS: Include alfuzosin ER 10 mg daily, alprazolam p.r.n., atorvastatin 40 mg daily, Lexapro 20 mg daily, gabapentin 300 mg daily, hydrocodone 10/325 q. 8 hours p.r.n., levothyroxine 88 mcg daily, pantoprazole 40 mg daily, and Ambien at bedtime p.r.n. ALLERGIES: SHE HAS ALLERGIES TO CODEINE, WHICH CAUSED NAUSEA; AND SULFA. REVIEW OF SYSTEMS: CONSTITUTIONAL: She does complain of weakness. HEENT: She denies any visual or auditory changes. No sore throat or dysphagia. CARDIOPULMONARY: She states she has had a little bit of discomfort in her upper back. She denies any hemoptysis. She has been short of breath. She has had some cough. GASTROINTESTINAL: She denies any abdominal pain, nausea, vomiting, or diarrhea. NEUROLOGIC: She complains of some generalized weakness, but no numbness or tingling. She had the short, witnessed syncopal event about a month ago. PHYSICAL EXAMINATION: VITAL SIGNS: Today, pulse 75, blood pressure 132/74, respirations of 22, temperature 98.6, and pulse ox 94% on room air. HEENT: Unremarkable. NECK: Supple. No JVD. HEART: She has S1 and S2. No murmurs or rubs. LUNGS: She has some decreased breath sounds at the right base. HISTORY AND PHYSICAL [id number] ALLA TINEO ABDOMEN: Soft, nontender, and nondistended. EXTREMITIES: She has no peripheral edema noted. ASSESSMENT AND PLAN: A 73-year-old female with; 1. Acute pulmonary embolism. She has large right pleural effusion with some compressive atelectasis. She has right upper lobe pulmonary emboli. Venous Doppler does confirm left popliteal and posterior tibial DVT. Echo is pending. We are starting her on nfv-rgizpxmwr-cducru heparin injection. We are going to consult pulmonary. At this point, with her possible infectious component as well, we are going to continue the antibiotic, IV Levaquin. We are going to ask interventional radiology to see her for possible thoracentesis and also to discuss IVC filter. 2. For her low back pain, we are going to continue with her home [place]. 3. GERD and peptic ulcer disease prophylaxes. Continue with pantoprazole. 4. Hypothyroidism. Continue with home medications. We will continue to follow clinically. TRANSINT:[id number] Voice Confirmation ID: [id number] DOCUMENT ID: [id number] ROBY TOM DO at 0649 CC: [id number] DICTATION DATE: 08/24/181754 RESIDENTIAL CARPET INSTALLER: 08/24/18 193 ADM IN [facility] [address] [place] [address]
--- NOTE | ~2018-08-24 | MORECARE ---
CASE MANAGEMENT DISCHARGE SUMMARY PATIENT: ALLA CROW UNIT: [id number] ADM DATE: 08/24/18 AGE: 73 : [birth year] SEX: F ROOM/BED: [facility] AUTHOR: ALICIADOC PHYSICIAN: REFERRING PHYSICIAN: NELSON TOM DO DATE OF SERVICE: 09/07/18 Discharge Plan Patient Name: ALLA CROW Facility: [facility]:[place] : 1945 Planned Disposition: Home Anticipated Discharge Date: Discharge Date: 09/07/2018 Expected LOS: Initial Reviewer: [email or web address] Initial Review Date: 08/25/2018 Generated: 09/07/18 2:01 pm Comments DCP- Discharge Planning Updated by [email or web address]: Erin Alexander on 09/07/18 9:[address] IMM explained and served 09/07/18 @ 18. Patient denies any discharge needs. CM will continue to follow and assist with discharge planning / needs. DCP- Discharge Planning Updated by [email or web address]: Marisol Beckford on 08/25/18 2:[address] Patient Name: ALLA CROW Admission Status: Elective Accout number: [id number] Admission Date: 08-24-2018 : 1945 Admission Diagnosis: Attending: Nelson Tom Current LOS: 1 Anticipated DC Date: Planned Disposition: Home Primary Insurance: MEDICARE A & B Discharge Planning Comments: CM met with patient to discuss discharge planning. Verbal permission received to discuss discharge planning with her and daughter in the room. She states she lives with her and is independent with all ADL's and IADL's. States she does not have any DME or need any DME at this time. States she does not have DME company preference. States she has had HHS in the past, but declines HHS at this time. States she is unsure which agency she has used in the past. She is wearing oxygen at 4L [place] at this time. CM will continue to follow and evaluate for needs on discharge. Air Traffic Control Specialist: Marisol Beckford DCPIA - Discharge Planning Initial Assessment Updated by [email or web address]: Marisol Beckford on 08/25/18 3:44 pm * Is the patient Alert and Oriented? Yes * How many steps to enter\exit or inside your home? 1/0 * PCP Jose * Pharmacy [facility] [address] * Preadmission Environment Home with Family * ADLs Independent * Equipment None * List name and contact numbers for known caregivers / representatives who currently or will assist patient after discharge: Herbert Crow - - [phone] Maya - daughter - [phone] * Verbal permission to speak to the caregivers and representatives has been obtained from the patient. Yes * Community resources currently utilized None * Additional services required to return to the preadmission environment? No * Can the patient safely return to the preadmission environment? Yes * Has this patient been hospitalized within the prior 30 days at any hospital? No Coverage Notice Reviewer: [email or web address] Nikia Alexander Notice Issued Date-Time: 09/07/2018 9:18 Notice Type: IM Discharge Notice Notice Delivered To: Patient Relationship to Patient: Self Ocean Clam Boat Captain Name: Delivery Method: HAND - Hand Delivered Kavitha Days: Prior Verbal Notification: Recipient Understood Notice: Yes Recipient Signature: Yes Med Rec Note Co-signed by Attending: Coverage Notice Comment: Last DP export: 09/07/18 9:10 Patient Name: ALLA CROW Page [phone] at 1301 All edits/amendments must be made on the electronic document DICTATION DATE: 09/07/18 1301 NURSE STAFF [facility]: IKE 09/07/18 1301 RPT#: [id number] DC DATE:09/07/18 STATUS: DIS IN [facility] [address] [place] [address] END OF REPORT
--- NOTE | ~2018-08-24 | HEMODYNAMI ---
PATIENT:ALLA TINEO MEDICAL RECORD: [id number] : 47 LOCATION:D.MS Peña2235 ADMISSION DATE: 08/24/18 Generatedon:08/25/201811:34 Patient name: ALLA TINEO Patient #: [id number] SSN: : 1945 Date of study: 08/25/2018 Page: Of Hemodynamic Procedure Report Patient Data Patient Demographics Procedure consent was obtained First Name: ALLA Gender: Female Last Name: RIVKA : 1945 [facility] Initial: ELIJAH Age: 73 year(s) Patient #: [id number] Race: Unknown Additional ID: [id number] Contact details Address: [place] [address] State: [place] City: [place] Zip code: [address] Past Medical History Allergies Allergen Reaction Date Comments Reported Sulfa drugs 08/25/2018 Admission Admission Data Admission Date: 08/24/2018 Admission Time: 13:59 Room #: D.2235 Procedure Procedure Types Cath Procedure Peripheral Cath Diagnostic Procedure Miscellaneous Procedure Description Procedure Date Procedure Date: 08/25/2018 Procedure Start Time: 10:50 Procedure Staff Name Function Teto Núñez MD Performing Physician Rafael Gonzalez RT Monitor Nenita Ungerub Ashly Kinney RN Nurse Procedure Data Cath Procedure Fluoroscopy Diagnostic fluoroscopy Total fluoroscopy Time: 0 time: 0 min min Diagnostic fluoroscopy Total fluoroscopy dose: 266 dose: 266 mGy mGy Contrast Material Contrast Material Type Amount (ml) Isovue 300 30 Procedure Medications Medication Administration Route Dosage Heparin Flush Bag added to field 1 bags (1000units/500ml NS) Lidocaine 1% added to field 20 Versed I.V. 1 mg Fentanyl I.V. 50 mcg Versed I.V. 1 mg Fentanyl I.V. 50 mcg Versed I.V. 1 mg Fentanyl I.V. 50 mcg Hemodynamics Rest Heart Rate: 79 (bpm) Snapshots Pre Cath Intra NCS Post Cath Vital Signs Time Heart Resp SPO2 etCO2 NIBP (mmHg) Rhythm Pain Sedation Rate (ipm) (%) (mmHg) Status Level (bpm) 10:39:24 60 18 96 32.1 Measuring NSR 0 (11) 10(A) , No pain 10:39:59 58 17 96 33.6 139/67(89) NSR 0 (11) 10(A) , No pain 10:44:15 59 22 96 33.6 140/67(94) NSR 0 (11) 10(A) , No pain 10:48:33 67 21 96 32.1 141/69(95) NSR 0 (11) 10(A) , No pain 10:52:49 61 20 95 25.4 136/70(109) NSR 0 (11) 10(A) , No pain 10:57:48 70 15 95 23.8 Measuring NSR 0 (11) 10(A) , No pain 10:57:56 69 15 95 26.8 137/69(92) NSR 0 (11) 10(A) , No pain 11:02:10 73 17 94 38.1 147/77(92) NSR 0 (11) 10(A) , No pain 11:06:30 69 15 95 37.3 141/62(99) NSR 0 (11) 10(A) , No pain 11:10:50 79 15 96 26.1 144/67(89) NSR 0 (11) 10(A) , No pain 11:15:13 68 20 95 34.4 148/69(111) NSR 0 (11) 10(A) , No pain 11:19:31 66 16 95 11.9 129/67(97) NSR 0 (11) 10(A) , No pain 11:23:41 65 14 96 14.9 126/65(89) NSR 0 (11) 10(A) , No pain 11:27:57 64 14 97 38.8 112/58(92) NSR 0 (11) 10(A) , No pain 11:32:09 66 11 97 38.8 117/60(85) NSR 0 (11) 10(A) , No pain Medications Time Medication Route Dose Verified Delivered Reason Notes Effec tiveness by by 10:50:35 Heparin Flush added 1 M Thor Núñez used for Bag to bags MD BARRAZA procedure (1000units/500ml field NS) 10:50:46 Lidocaine 1% added 20ml M J Long M J Long used for to kevin BARRAZA MD procedure field 10:50:57 Versed I.V. 1 mg M J Long Ashly for MD Kinney RN sedation 10:51:12 Fentanyl I.V. 50 M J Long Ashly for fabienne Kinney RN sedation 10:54:23 Versed I.V. 1 mg M J Long Ashly for MD Kinney RN sedation 10:54:30 Fentanyl I.V. 50 M J Long Ashly for fabienne Kinney RN sedation 11:25:57 Versed I.V. 1 mg M J Long Ashly for MD Kinney RN sedation 11:26:03 Fentanyl I.V. 50 M J Long Ashly for fabienne Kinney RN sedation Procedure Log Time Note 10:16:00 Rafael Gonzalez RT (R) (CV) sent for patient. Start room use. 10:16:11 Time tracking: Regular hours (M-F 7:00 - 5:00) 10:16:19 Plan of Care:Hemodynamics will remain stable., Cardiac rhythm will remain stable., Comfort level will be maintained., Respiratory function will remain adequate., Patient/ family verbilizes understanding of procedure., Procedure tolerated without complication., Recovers from procedure without complications.. 10:16:28 Patient received from Med/Surg to IR Alert and oriented. Tansferred to table in Supine position. 10:16:30 Correct patient and procedure confirmed by team. 10:16:31 ECG and BP/O2 sat monitors applied to patient. 10:16:32 Correct patient and procedure confirmed by team. 10:16:33 Correct patient and procedure confirmed by team. 10:16:35 Signed procedure consent form obtained from patient. 10:16:37 Full Disclosure recording started 10:16:38 - 10:16:41 H&P Date Dictated: 08/25/2018 Within 30 days and on chart.. 10:16:42 Pre-procedure instructions explained to patient. 10:16:42 Pre-op teaching completed and patient verbalized understanding. 10:16:46 Use device set IR Diagnostic 10:16:47 Tegaderm 4 x 4 (1626W) opened to sterile field. 10:16:48 Sterile Angiographic Pack opened to sterile field. 10:16:49 Bag Decanter (2002S) opened to sterile field. 10:16:59 Family in waiting room. 10:17:01 Patient NPO since Midnight. 10:17:18 Patient allergic to Sulfa drugs 10:17:21 Is the patient allergic to Iodine/contrast media? Yes. 10:17:32 Is patient on blood thinner?Yes 10:17:36 ACC The patient was administered the following blood thiners within the last 24 hours: ACCLovenox 10:17:40 Patient diabetic? No. 10:17:41 - 10:17:42 ----Pre-sedation anethsthesia assessment.---- 10:17:54 Previous problem with sedation/anesthesia? No ? 10:17:56 Snore? Yes 10:17:58 Sleep apnea? No 10:18:00 Deviated septum? No 10:18:38 Opens mouth fully? Yes 10:18:39 Sticks out tongue? Yes 10:18:56 Airway obstruction? No ? 10:19:04 Dentures? No ? 10:19:19 Patient pain scale 0/10 no pain'. 10:19:25 IV patent on arrival in right forearm with 0.9% NaCl at [facility]. 10:20:16 Sharps counted by scrub and verified by RJoleenN. 10:20:16 Alarms reviewed by RJoleen N. 10:34:22 Right groin area was prepped with chlora-prep and draped in sterile fashion 10:37:34 Vital chart was started 10:37:35 Baseline sample Acquired. 10:48:08 Physician arrived 10:48:09 --------ALL STOP TIME OUT------ 10:48:10 Final Timeout: patient, procedure, and site verified with staff and physician. All members of the team are in agreement. 10:48:16 Right groin site verified by team. 10:48:22 Sedation plan: IV Moderate Sedation Medication:Versed, Fentanyl 10:50:05 Procedure started. 10:50:12 Local anesthetic to left femoral vein with Lidocaine 1% by Teto Núñez MD.INITIAL ACCESS ONLY 10:50:21 Access obtained with 4Fr micropunture. 10:50:25 Micropuncture VSI 4FR kit opened to sterile field. 10:50:26 DOC .035 wire ([id number]) opened to sterile field. 10:50:26 FILTER Carmen Vena Cava (YS386E) opened to sterile field. 10:50:35 Heparin Flush Bag (1000units/500ml NS) 1 bags added to field was administered by Teto Núñez MD; used for procedure; 10:50:46 Lidocaine 1% 20ml vial added to field was administered by Teto Núñez MD; used for procedure; 10:50:57 Versed 1 mg I.V. was administered by Ashly Kinney RN; for sedation; 10:51:12 Fentanyl 50 mcg I.V. was administered by Ashly Kinney RN; for sedation ; 10:54:23 Versed 1 mg I.V. was administered by Ashly Kinney RN; for sedation; 10:54:30 Fentanyl 50 mcg I.V. was administered by Ashly Kinney RN; for sedation ; 10:56:57 Cannon Femoral IVC filter was placed below renal veins. 11:01:25 SHEATH PULLED PRESSURE HELD OPSITE AND 4 X 4 APPLIED 11:01:45 Contrast amount:Isovue 300 30ml. 11:02:20 Right chest area was prepped with chlora-prep and draped in sterile fashion 11:12:57 Physician arrived 11:14:34 Local anesthetic to Chest area with Lidocaine 1% by Teto Núñez MD.ADDITIONAL ACCESS 11::57 Versed 1 mg I.V. was administered by Ashly Kinney RN; for sedation; 11:26:03 Fentanyl 50 mcg I.V. was administered by Ashly Kinney RN; for sedation ; 11:29:16 2 LITERS DRAINED FROM CHEST 11:29:21 Procedure ended.(Physican Out) 11:29:35 Fluoroscopy time 00.00 minutes. 11:29:41 Fluoroscopy dose: 266 mGy 11:29:41 Flurop Dose total: 266 11:29:43 Sharps counted by scrub and verified by R.N. 11:29:46 Insertion/operative site no bleeding no hematoma. 11:29:53 Post-op/insertion site Right Femoral vein dressed using a 4 x 4 and Tegaderm. 11:29:58 Post-op/insertion site Right Chest area dressed using a 4 x 4 and Tegaderm. 11:32:20 Procedure and supply charges have been captured, reviewed, submitted an d are correct. 11:32:21 Post procedure instruction explained to patient.Patient verbalizes understanding. 11:33:32 Report given to Med/Surg. 11:33:35 Patient transfered to Med/Surg with Bed. 11:34:03 Vital chart was stopped Device Usage Item Name Manufacture Quantity Catalog Hospital Part Current Minima l Lot# / Number Charge Number Stock Stock Serial# Code Tegaderm 4 x 3M 1 [id number] 4 (1626W) Sterile Cardinal 1 [id number] 5 Angiographic Health Pack Bag Decanter Microtek 1 2001S [id number] [id number] 5 (2001S) [employer] Micropuncture VSI VASCULAR 1 7266V [id number] 342516 5 VSI 4FR kit SOLUTIONS DOC .035 wire [employer] 1 [id number] 5 ([id number]) FILTER Cannon Bard 1 [id number] 5 [id number] Vena Cava (BU135F) Signature Audit [place] Stage Time Signature Unsigned Intra-Procedure 08/25/2018 Rafael 11:33:59 AM Lisa RT (R) (CV) Signatures Monitor : Rafael Signature : Lisa RT Date : Time : [place] [id number]
[~2018-08-24 08:58] MED LIST changes: +HYDROCODONE-APA1 TAB PO; +LIPITOR40 MG PO
[2018-08-24 16:55] LABS: BASOPHILS 0.2 % (0-2); HEMATOCRIT 37.9 % (36.0-48.0); HEMOGLOBIN 11.9 g/dL (12-16); IMMATURE GRANULOCYTES 0.5 % (0-5); LYMPHOCYTES 20.7 % (15-50); MCHC 31.4 g/dL (31.0-37.0); MCV 89.2 fL (80.0-100.0); MEAN PLATELET VOLUME 10.1 fL (7.4-10.4); NEUTROPHILS 70.6 % (40-80); PLATELET COUNT 187 10x3/uL (130-400); RBC 4.25 10x6/uL (4.00-5.40); RDW 15.1 % (11.5-14.5)
[2018-08-24 16:59] LABS: APTT 25.1 SECONDS (22.8-39.4); INR 1.21 (0.85-1.17); PROTIME 14.8 SECONDS (11.6-15.0)
[2018-08-24 17:06] VITALS: BP 132/58; BMI 25.8
[2018-08-24 18:38] LABS: ALBUMIN 3.5 g/dL (3.4-5.0); ANION GAP 19.5 mmol/L (8-16); BILIRUBIN - TOTAL 0.11 mg/dL (0.2-1.3); CALCIUM 8.8 mg/dL (8.5-10.1); CARBON DIOXIDE 22.4 mmol/L (21.0-32.0); CREATININE - SERUM 1.1 mg/dL (0.6-1.3); POTASSIUM - SERUM 3.9 mmol/L (3.5-5.1); PROTEIN - SERUM 6.6 g/dL (6.4-8.2)
[2018-08-24 18:47] LABS: THYROID STIMULATING HORMONE 1.56 uIU/mL (0.36-3.74)
[2018-08-24 21:20] VITALS: BP 108/67
[2018-08-25] VITALS (10 sets, daily range): BP systolic 102–133; BP diastolic 47–79; BMI 25.8
[2018-08-25 05:00] LABS: BASOPHILS 0.2 % (0-2); EOSINOPHILS 1.5 % (0-7); HEMATOCRIT 35.7 % (36.0-48.0); IMMATURE GRANULOCYTES 0.3 % (0-5); LYMPHOCYTES 13.2 % (15-50); MCH 27.7 pg (26.0-34.0); MCHC 30.8 g/dL (31.0-37.0); MCV 89.9 fL (80.0-100.0); MEAN PLATELET VOLUME 9.6 fL (7.4-10.4); MONOCYTES 7.4 % (2-11); NEUTROPHILS 77.4 % (40-80); PLATELET COUNT 186 10x3/uL (130-400); RBC 3.97 10x6/uL (4.00-5.40); WBC 9.4 10x3/uL (4.8-10.8)
[2018-08-25 05:09] LABS: INR 1.32 (0.85-1.17); PROTIME 15.9 SECONDS (11.6-15.0)
[2018-08-25 05:14] LABS: APTT 34.7 SECONDS (22.8-39.4)
[2018-08-25 05:29] LABS: % SATURATION 10 % (15-55); ALBUMIN 3.1 g/dL (3.4-5.0); BILIRUBIN - TOTAL 0.21 mg/dL (0.2-1.3); CALCIUM 8.5 mg/dL (8.5-10.1); CARBON DIOXIDE 25.4 mmol/L (21.0-32.0); CREATININE - SERUM 0.9 mg/dL (0.6-1.3); IRON 33 ug/dl (35-150); POTASSIUM - SERUM 4.4 mmol/L (3.5-5.1); PROTEIN - SERUM 6.1 g/dL (6.4-8.2); TOTAL IRON BIND CAPACITY 322 ug/dl (260-445); UNSAT IRON BIND CAPACITY 289 ug/dl (150-375)
[2018-08-25 13:21] LABS: PROTEIN - BODY FLUID 4.7 G/DL
[2018-08-25 14:46] LABS: MACROPHAGES BF 19 %; MESOTHELIALS BF 55 %; NEUT - BF 1 %
[2018-08-26 04:26] LABS: BASOPHILS 0.1 % (0-2); EOSINOPHILS 2.3 % (0-7); HEMATOCRIT 33.3 % (36.0-48.0); HEMOGLOBIN 10.1 g/dL (12-16); IMMATURE GRANULOCYTES 0.4 % (0-5); LYMPHOCYTES 13.5 % (15-50); MCH 27.4 pg (26.0-34.0); MCHC 30.3 g/dL (31.0-37.0); MCV 90.5 fL (80.0-100.0); MEAN PLATELET VOLUME 9.6 fL (7.4-10.4); MONOCYTES 7.9 % (2-11); NEUTROPHILS 75.8 % (40-80); PLATELET COUNT 163 10x3/uL (130-400); RBC 3.68 10x6/uL (4.00-5.40); RDW 15.1 % (11.5-14.5); WBC 7.1 10x3/uL (4.8-10.8)
[2018-08-26 04:47] LABS: ALBUMIN 2.8 g/dL (3.4-5.0); ANION GAP 12.3 mmol/L (8-16); BILIRUBIN - TOTAL 0.33 mg/dL (0.2-1.3); CALCIUM 8.5 mg/dL (8.5-10.1); MAGNESIUM - SERUM 2.5 mg/dL (1.8-2.4); PHOSPHOROUS 4.5 mg/dL (2.5-4.9); POTASSIUM - SERUM 4.3 mmol/L (3.5-5.1); PROTEIN - SERUM 5.7 g/dL (6.4-8.2)
[2018-08-26 05:28] VITALS: BP 99/44
[2018-08-26 10:20] VITALS: BP 113/46
[2018-08-26 12:16] LABS: ACLA - IGG AB <9 GPL U/mL (0-14); ACLA - IGM AB <9 MPL U/mL (0-12)
[2018-08-26 15:20] VITALS: BP 135/48
[2018-08-26 16:15] LABS: ACID FAST SMEAR Negative (()); AFB SPECIMEN PROCESSING Concentration (())
[2018-08-26 21:37] VITALS: BP 124/61
[2018-08-27] VITALS: BP 108/55
[2018-08-27 04:13] LABS: ANTITHROMBIN III ACTIVITY 110 % (75-135); PLASMINOGEN ACTIVITY 75 % (70-150); PROTEIN S - FREE 114 % (57-157); PROTEIN S - FUNCTIONAL 105 % (63-140); PROTEIN S - TOTAL 81 % (60-150)
[2018-08-27 04:35] LABS: BASOPHILS 0.1 % (0-2); HEMATOCRIT 30.9 % (36.0-48.0); HEMOGLOBIN 9.6 g/dL (12-16); IMMATURE GRANULOCYTES 0.4 % (0-5); LYMPHOCYTES 12.3 % (15-50); MCHC 31.1 g/dL (31.0-37.0); MCV 90.1 fL (80.0-100.0); MEAN PLATELET VOLUME 10.3 fL (7.4-10.4); MONOCYTES 6.7 % (2-11); NEUTROPHILS 77.5 % (40-80); PLATELET COUNT 168 10x3/uL (130-400); RBC 3.43 10x6/uL (4.00-5.40); RDW 15.3 % (11.5-14.5); WBC 7.1 10x3/uL (4.8-10.8)
[2018-08-27 04:50] LABS: ALBUMIN 2.7 g/dL (3.4-5.0); ANION GAP 11.3 mmol/L (8-16); BILIRUBIN - TOTAL 0.17 mg/dL (0.2-1.3); CALCIUM 8.3 mg/dL (8.5-10.1); CARBON DIOXIDE 25.2 mmol/L (21.0-32.0); PROTEIN - SERUM 5.6 g/dL (6.4-8.2)
[2018-08-27 04:51] LABS: POTASSIUM - SERUM 3.5 mmol/L (3.5-5.1)
[2018-08-27 06:08] VITALS: BP 117/57
[2018-08-27 08:06] VITALS: BP 112/54
[2018-08-27 12:52] VITALS: BP 106/48
[2018-08-27 13:18] LABS: FUNGUS STAIN Final report (())
[2018-08-27 13:46] VITALS: Ht 167.6 cm; Wt 71.1 kg
[2018-08-27 14:32] LABS: APTT 33.8 SECONDS (22.8-39.4); INR 1.12 (0.85-1.17)
[2018-08-27 14:43] LABS: HEMATOCRIT 31.6 % (36.0-48.0); HEMOGLOBIN 9.8 g/dL (12-16); MCH 27.8 pg (26.0-34.0); MCV 89.8 fL (80.0-100.0); MEAN PLATELET VOLUME 9.9 fL (7.4-10.4); RBC 3.52 10x6/uL (4.00-5.40); RDW 15.3 % (11.5-14.5); WBC 7.3 10x3/uL (4.8-10.8)
[2018-08-27 14:44] LABS: ALBUMIN 2.9 g/dL (3.4-5.0); ANION GAP 12.4 mmol/L (8-16); BILIRUBIN - TOTAL 0.27 mg/dL (0.2-1.3); CALCIUM 8.4 mg/dL (8.5-10.1); CARBON DIOXIDE 26.2 mmol/L (21.0-32.0); POTASSIUM - SERUM 3.6 mmol/L (3.5-5.1); PROTEIN - SERUM 5.7 g/dL (6.4-8.2)
[2018-08-27 17:20] VITALS: BP 125/54
[2018-08-27 20:56] VITALS: BP 106/51
[2018-08-28 00:51] VITALS: BP 128/56
[2018-08-28 05:09] VITALS: BP 125/56
[2018-08-28 05:16] LABS: BASOPHILS 0.3 % (0-2); EOSINOPHILS 2.3 % (0-7); HEMATOCRIT 31.5 % (36.0-48.0); HEMOGLOBIN 10.2 g/dL (12-16); IMMATURE GRANULOCYTES 0.4 % (0-5); LYMPHOCYTES 14.2 % (15-50); MCH 28.7 pg (26.0-34.0); MCHC 32.4 g/dL (31.0-37.0); MCV 88.5 fL (80.0-100.0); MEAN PLATELET VOLUME 9.7 fL (7.4-10.4); NEUTROPHILS 74.8 % (40-80); PLATELET COUNT 184 10x3/uL (130-400); RBC 3.56 10x6/uL (4.00-5.40); RDW 15.3 % (11.5-14.5); WBC 7.7 10x3/uL (4.8-10.8)
[2018-08-28 05:23] LABS: APTT 33.7 SECONDS (22.8-39.4); INR 1.06 (0.85-1.17); PROTIME 13.4 SECONDS (11.6-15.0)
[2018-08-28 05:42] LABS: ANION GAP 12.6 mmol/L (8-16); CALCIUM 8.6 mg/dL (8.5-10.1); CARBON DIOXIDE 23.4 mmol/L (21.0-32.0); CREATININE - SERUM 0.9 mg/dL (0.6-1.3)
[2018-08-28 05:50] LABS: APPEARANCE CLEAR (CLEAR); BILIRUBIN NEGATIVE (NEGATIVE); COLOR YELLOW (YELLOW); GLUCOSE NEGATIVE (NEGATIVE); KETONE NEGATIVE (NEGATIVE); NITRITE NEGATIVE (NEGATIVE); PROTEIN NEGATIVE (NEGATIVE); UROBILINOGEN NORMAL (NORMAL)
[2018-08-28 08:18] LABS: LUPUS - INTERPRETATION Comment: (()); LUPUS - dRVVT 55.8 sec (0.0-47.0); PTT-LA 42.5 sec (0.0-51.9)
[2018-08-28 12:49] VITALS: BP 156/61
[2018-08-28 17:47] VITALS: BP 130/52
[2018-08-28 20:50] VITALS: BP 145/64
[2018-08-28 21:06] LABS: PROTEIN C - ANTIGEN 91 % (60-150); PROTEIN C - FUNCTIONAL 155 % (73-180)
[2018-08-29 05:27] VITALS: BP 132/75
[2018-08-29 05:47] LABS: BASOPHILS 0.3 % (0-2); EOSINOPHILS 3.6 % (0-7); HEMATOCRIT 29.4 % (36.0-48.0); HEMOGLOBIN 9.2 g/dL (12-16); IMMATURE GRANULOCYTES 0.5 % (0-5); LYMPHOCYTES 19.1 % (15-50); MCH 27.6 pg (26.0-34.0); MCHC 31.3 g/dL (31.0-37.0); MCV 88.3 fL (80.0-100.0); MEAN PLATELET VOLUME 10.2 fL (7.4-10.4); MONOCYTES 7.6 % (2-11); NEUTROPHILS 68.9 % (40-80); PLATELET COUNT 173 10x3/uL (130-400); RBC 3.33 10x6/uL (4.00-5.40); RDW 15.6 % (11.5-14.5); WBC 6.3 10x3/uL (4.8-10.8)
[2018-08-29 06:16] LABS: ALBUMIN 2.7 g/dL (3.4-5.0); ANION GAP 11.7 mmol/L (8-16); BILIRUBIN - TOTAL 0.45 mg/dL (0.2-1.3); CALCIUM 8.5 mg/dL (8.5-10.1); CARBON DIOXIDE 26.2 mmol/L (21.0-32.0); CREATININE - SERUM 0.9 mg/dL (0.6-1.3); POTASSIUM - SERUM 3.9 mmol/L (3.5-5.1); PROTEIN - SERUM 5.9 g/dL (6.4-8.2)
[2018-08-29 10:28] VITALS: BP 146/62
[2018-08-29 12:37] VITALS: BP 151/54
[2018-08-29 17:10] VITALS: BP 135/49
[2018-08-29 22:54] VITALS: BP 133/52
[2018-08-30] VITALS (45 sets, daily range): BP systolic 94–137; BP diastolic 48–74
[2018-08-30 05:48] LABS: BASOPHILS 0.3 % (0-2); EOSINOPHILS 3.7 % (0-7); HEMATOCRIT 30.7 % (36.0-48.0); HEMOGLOBIN 9.5 g/dL (12-16); IMMATURE GRANULOCYTES 0.4 % (0-5); LYMPHOCYTES 14.7 % (15-50); MCH 27.3 pg (26.0-34.0); MCHC 30.9 g/dL (31.0-37.0); MCV 88.2 fL (80.0-100.0); MEAN PLATELET VOLUME 9.9 fL (7.4-10.4); MONOCYTES 9.2 % (2-11); NEUTROPHILS 71.7 % (40-80); PLATELET COUNT 182 10x3/uL (130-400); RBC 3.48 10x6/uL (4.00-5.40); RDW 15.5 % (11.5-14.5); WBC 7.2 10x3/uL (4.8-10.8)
[2018-08-30 06:00] LABS: ALBUMIN 2.8 g/dL (3.4-5.0); ANION GAP 14.7 mmol/L (8-16); BILIRUBIN - TOTAL 0.5 mg/dL (0.2-1.3); CALCIUM 8.5 mg/dL (8.5-10.1); CARBON DIOXIDE 23.9 mmol/L (21.0-32.0); CREATININE - SERUM 0.9 mg/dL (0.6-1.3); POTASSIUM - SERUM 3.6 mmol/L (3.5-5.1); PROTEIN - SERUM 6.1 g/dL (6.4-8.2)
[2018-08-30 11:13] LABS: ANA REFLEX - DIRECT Negative (Negative)
[2018-08-31] VITALS (93 sets, daily range): BP systolic 77–123; BP diastolic 39–59
[2018-08-31 06:34] LABS: HEMATOCRIT 28.9 % (36.0-48.0); MCH 27.5 pg (26.0-34.0); MCHC 31.1 g/dL (31.0-37.0); MCV 88.4 fL (80.0-100.0); MEAN PLATELET VOLUME 9.7 fL (7.4-10.4); RBC 3.27 10x6/uL (4.00-5.40); RDW 15.3 % (11.5-14.5)
[2018-08-31 06:36] LABS: WBC 9.4 10x3/uL (4.8-10.8)
[2018-08-31 06:52] LABS: ALBUMIN 2.4 g/dL (3.4-5.0); ANION GAP 12.6 mmol/L (8-16); BILIRUBIN - TOTAL 0.53 mg/dL (0.2-1.3); CALCIUM 8.2 mg/dL (8.5-10.1); CREATININE - SERUM 0.9 mg/dL (0.6-1.3); POTASSIUM - SERUM 3.6 mmol/L (3.5-5.1); PROTEIN - SERUM 5.7 g/dL (6.4-8.2)
[2018-08-31 16:22] LABS: HEMATOCRIT 25.1 % (36.0-48.0); HEMOGLOBIN 7.9 g/dL (12-16)
[2018-08-31 19:12] LABS: FACTOR II DNA ANALYSIS Negative (())
[2018-08-31 20:08] LABS: ACID FAST SMEAR Negative (()); AFB SPECIMEN PROCESSING Concentration (())
[2018-08-31 20:08] LABS: ACID FAST SMEAR Negative (()); AFB SPECIMEN PROCESSING Concentration (())
[2018-08-31 20:08] LABS: ACID FAST SMEAR Negative (()); AFB SPECIMEN PROCESSING Tissue Grinding (())
[2018-08-31 20:08] LABS: ACID FAST SMEAR Negative (()); AFB SPECIMEN PROCESSING Concentration (())
[2018-09-01] VITALS (97 sets, daily range): BP systolic 86–125; BP diastolic 35–58
[2018-09-01 06:12] LABS: HEMATOCRIT 25.3 % (36.0-48.0); HEMOGLOBIN 7.9 g/dL (12-16); MCH 27.6 pg (26.0-34.0); MCHC 31.2 g/dL (31.0-37.0); MCV 88.5 fL (80.0-100.0); MEAN PLATELET VOLUME 9.7 fL (7.4-10.4); RBC 2.86 10x6/uL (4.00-5.40); RDW 15.3 % (11.5-14.5)
[2018-09-01 06:35] LABS: ALBUMIN 2.2 g/dL (3.4-5.0); ANION GAP 13.9 mmol/L (8-16); BILIRUBIN - TOTAL 0.43 mg/dL (0.2-1.3); CALCIUM 8.2 mg/dL (8.5-10.1); CARBON DIOXIDE 22.7 mmol/L (21.0-32.0); CREATININE - SERUM 0.8 mg/dL (0.6-1.3); POTASSIUM - SERUM 3.6 mmol/L (3.5-5.1); PROTEIN - SERUM 5.4 g/dL (6.4-8.2)
[2018-09-01 13:18] LABS: FUNGUS STAIN Final report (())
[2018-09-01 13:18] LABS: FUNGUS STAIN Final report (())
[2018-09-01 13:18] LABS: FUNGUS STAIN Final report (())
[2018-09-01 13:18] LABS: FUNGUS STAIN Final report (())
[2018-09-02] VITALS (72 sets, daily range): BP systolic 88–121; BP diastolic 29–458
[2018-09-02 06:42] LABS: HEMATOCRIT 22.8 % (36.0-48.0); MCH 27.8 pg (26.0-34.0); MCHC 31.6 g/dL (31.0-37.0); MEAN PLATELET VOLUME 10.2 fL (7.4-10.4); RBC 2.59 10x6/uL (4.00-5.40); RDW 15.4 % (11.5-14.5)
[2018-09-02 06:53] LABS: HEMOGLOBIN 7.2 g/dL (12-16)
[2018-09-02 07:06] LABS: ALBUMIN 2.1 g/dL (3.4-5.0); ANION GAP 10.4 mmol/L (8-16); BILIRUBIN - TOTAL 0.35 mg/dL (0.2-1.3); CALCIUM 7.9 mg/dL (8.5-10.1); CARBON DIOXIDE 26.2 mmol/L (21.0-32.0); CREATININE - SERUM 0.8 mg/dL (0.6-1.3); POTASSIUM - SERUM 3.6 mmol/L (3.5-5.1); PROTEIN - SERUM 5.3 g/dL (6.4-8.2)
[2018-09-03] VITALS (33 sets, daily range): BP systolic 90–143; BP diastolic 41–91
[2018-09-03 05:54] LABS: BASOPHILS 0.3 % (0-2); EOSINOPHILS 5.8 % (0-7); HEMATOCRIT 29.6 % (36.0-48.0); HEMOGLOBIN 9.6 g/dL (12-16); IMMATURE GRANULOCYTES 0.4 % (0-5); LYMPHOCYTES 10.7 % (15-50); MCH 28.2 pg (26.0-34.0); MCHC 32.4 g/dL (31.0-37.0); MCV 86.8 fL (80.0-100.0); MEAN PLATELET VOLUME 10.1 fL (7.4-10.4); NEUTROPHILS 74.8 % (40-80); PLATELET COUNT 103 10x3/uL (130-400); RBC 3.41 10x6/uL (4.00-5.40); RDW 15.5 % (11.5-14.5); WBC 6.9 10x3/uL (4.8-10.8)
[2018-09-03 06:05] LABS: ALBUMIN 2.2 g/dL (3.4-5.0); ANION GAP 14.1 mmol/L (8-16); BILIRUBIN - TOTAL 0.58 mg/dL (0.2-1.3); CALCIUM 8.3 mg/dL (8.5-10.1); CARBON DIOXIDE 24.5 mmol/L (21.0-32.0); CREATININE - SERUM 0.8 mg/dL (0.6-1.3); MAGNESIUM - SERUM 2.1 mg/dL (1.8-2.4); PHOSPHOROUS 2.9 mg/dL (2.5-4.9); POTASSIUM - SERUM 3.6 mmol/L (3.5-5.1); PROTEIN - SERUM 5.7 g/dL (6.4-8.2)
[2018-09-04] VITALS (22 sets, daily range): BP systolic 97–137; BP diastolic 42–86
[2018-09-04 05:52] LABS: BASOPHILS 0.1 % (0-2); EOSINOPHILS 3.8 % (0-7); LYMPHOCYTES 8.1 % (15-50); MCH 27.9 pg (26.0-34.0); MCHC 32.1 g/dL (31.0-37.0); MCV 86.7 fL (80.0-100.0); MEAN PLATELET VOLUME 10.5 fL (7.4-10.4); MONOCYTES 9.2 % (2-11); NEUTROPHILS 77.8 % (40-80); PLATELET COUNT 93 10x3/uL (130-400); RBC 3.23 10x6/uL (4.00-5.40); RDW 15.2 % (11.5-14.5)
[2018-09-04 05:56] LABS: WBC 8.8 10x3/uL (4.8-10.8)
[2018-09-04 06:03] LABS: ANION GAP 10.6 mmol/L (8-16); CALCIUM 8.4 mg/dL (8.5-10.1); CARBON DIOXIDE 26.5 mmol/L (21.0-32.0); CREATININE - SERUM 0.8 mg/dL (0.6-1.3); POTASSIUM - SERUM 4.1 mmol/L (3.5-5.1)
[2018-09-04 07:01] LABS: PLATELET ESTIMATE DECREASED
[2018-09-05] VITALS (23 sets, daily range): BP systolic 98–121; BP diastolic 44–98
[2018-09-05 05:57] LABS: BASOPHILS 0.2 % (0-2); EOSINOPHILS 3.9 % (0-7); HEMATOCRIT 28.2 % (36.0-48.0); LYMPHOCYTES 8.6 % (15-50); MCHC 31.9 g/dL (31.0-37.0); MCV 87.6 fL (80.0-100.0); MEAN PLATELET VOLUME 10.3 fL (7.4-10.4); MONOCYTES 4.4 % (2-11); NEUTROPHILS 81.9 % (40-80); PLATELET COUNT 96 10x3/uL (130-400); RBC 3.22 10x6/uL (4.00-5.40); RDW 15.3 % (11.5-14.5); WBC 8.1 10x3/uL (4.8-10.8)
[2018-09-05 06:17] LABS: ANION GAP 14.3 mmol/L (8-16); CALCIUM 8.6 mg/dL (8.5-10.1); CARBON DIOXIDE 26.7 mmol/L (21.0-32.0); CREATININE - SERUM 0.9 mg/dL (0.6-1.3)
[2018-09-06] VITALS (18 sets, daily range): BP systolic 97–136; BP diastolic 45–75
[2018-09-06 07:04] LABS: ALBUMIN 2.3 g/dL (3.4-5.0); ANION GAP 13.5 mmol/L (8-16); BILIRUBIN - TOTAL 0.63 mg/dL (0.2-1.3); CALCIUM 8.6 mg/dL (8.5-10.1); CARBON DIOXIDE 26.8 mmol/L (21.0-32.0); CREATININE - SERUM 0.8 mg/dL (0.6-1.3); POTASSIUM - SERUM 4.3 mmol/L (3.5-5.1); PROTEIN - SERUM 5.9 g/dL (6.4-8.2)
[2018-09-06 07:25] LABS: BASOPHILS 0.2 % (0-2); EOSINOPHILS 3.7 % (0-7); HEMATOCRIT 27.8 % (36.0-48.0); HEMOGLOBIN 8.9 g/dL (12-16); IMMATURE GRANULOCYTES 1.5 % (0-5); LYMPHOCYTES 8.7 % (15-50); MCV 87.4 fL (80.0-100.0); MEAN PLATELET VOLUME 10.7 fL (7.4-10.4); MONOCYTES 7.7 % (2-11); NEUTROPHILS 78.2 % (40-80); PLATELET COUNT 126 10x3/uL (130-400); RBC 3.18 10x6/uL (4.00-5.40); RDW 15.5 % (11.5-14.5); WBC 8.4 10x3/uL (4.8-10.8)
[2018-09-06 15:19] LABS: FUNGUS MYCOLOGY CULTURE Preliminary report (())
[2018-09-06 15:19] LABS: FUNGUS MYCOLOGY CULTURE Preliminary report (())
[2018-09-06 15:19] LABS: FUNGUS MYCOLOGY CULTURE Preliminary report (())
[2018-09-06 15:19] LABS: FUNGUS MYCOLOGY CULTURE Preliminary report (())
[2018-09-07] VITALS: BP 108/55
[2018-09-07 01:00] VITALS: BP 105/50
[2018-09-07 03:00] VITALS: BP 115/55
[2018-09-07 07:00] VITALS: BP 110/52
[2018-09-07] MEDS ORDERED: XARELTO15 MG PO (07:15)
[2018-09-07] MEDS ORDERED: VENTOLIN HFA18 GM INH (07:16)
[2018-09-07 08:00] VITALS: BP 105/47
[2018-09-22 07:32] LABS: FUNGUS MYCOLOGY CULTURE Final report (())
== END 2018-09-07 12:55 | disposition home or self-care (01) | DRG 163 ==
LOC: D.RAD 08:58 → D.MS 13:59 → D.CVICU 13:59
PROVIDERS: Family Medicine; Internal Medicine Cardiovascular Disease; Internal Medicine Pulmonary Disease; Radiology Vascular & Interventional Radiology
PROC: 06H03DZ Insertion of Intraluminal Device into Inferior Vena Cava, Percutaneous Approach (ICD-10-PCS; 2018-08-25)
PROC: 0W993ZZ Drainage of Right Pleural Cavity, Percutaneous Approach (ICD-10-PCS; 2018-08-25)
PROC: 0BBN4ZX Excision of Right Pleura, Percutaneous Endoscopic Approach, Diagnostic (ICD-10-PCS; 2018-08-30)
PROC: 0BBF4ZX Excision of Right Lower Lung Lobe, Percutaneous Endoscopic Approach, Diagnostic (ICD-10-PCS; 2018-08-30)
PROC: 0B9M8ZX Drainage of Bilateral Lungs, Via Natural or Artificial Opening Endoscopic, Diagnostic (ICD-10-PCS; 2018-08-30)
PROC: 0B5N4ZZ Destruction of Right Pleura, Percutaneous Endoscopic Approach (ICD-10-PCS; principal; 2018-08-30 08:15)
DX: J86.9 Pyothorax without fistula (principal); I26.99 Other pulmonary embolism without acute cor pulmonale; J18.9 Pneumonia, unspecified organism; I82.442 Acute embolism and thrombosis of left tibial vein; I82.432 Acute embolism and thrombosis of left popliteal vein; J98.11 Atelectasis; I10 Essential (primary) hypertension; E03.9 Hypothyroidism, unspecified; E78.5 Hyperlipidemia, unspecified; K21.9 Gastro-esophageal reflux disease without esophagitis; F41.8 Other specified anxiety disorders; G89.29 Other chronic pain; J84.10 Pulmonary fibrosis, unspecified; K44.9 Diaphragmatic hernia without obstruction or gangrene; J30.9 Allergic rhinitis, unspecified; D64.9 Anemia, unspecified; R41.0 Disorientation, unspecified; M25.511 Pain in right shoulder; R05 Cough; M54.5 Low back pain

== ENCOUNTER → 2018-09-15 10:52 | Outpatient (CLI) | payer MEDICARE, OTHER ==
[2018-08-27 13:46] VITALS: BMI 25.8
[~2018-09-15 10:52] MED LIST changes: +VENTOLIN HFA18 GM INH; +XARELTO15 MG PO
== END | disposition home or self-care (01) ==
LOC: D.RAD 10:52
DX: R06.00 Dyspnea, unspecified (principal)

== ENCOUNTER → 2018-09-30 10:40 | Outpatient (CLI) | payer MEDICARE, OTHER ==
[2018-08-27 13:46] VITALS: BMI 25.8
== END | disposition home or self-care (01) ==
LOC: D.RAD 10:40
DX: R06.00 Dyspnea, unspecified (principal)

== ENCOUNTER → 2018-10-05 11:47 | Outpatient (CLI) | payer MEDICARE, OTHER ==
[2018-08-27 13:46] VITALS: BMI 25.8
[2018-10-05 12:19] LABS: BASOPHILS 0.4 % (0-2); EOSINOPHILS 2.2 % (0-7); HEMATOCRIT 33.3 % (36.0-48.0); HEMOGLOBIN 10.4 g/dL (12-16); IMMATURE GRANULOCYTES 0.3 % (0-5); LYMPHOCYTES 15.8 % (15-50); MCH 28.2 pg (26.0-34.0); MCHC 31.2 g/dL (31.0-37.0); MCV 90.2 fL (80.0-100.0); MONOCYTES 8.1 % (2-11); NEUTROPHILS 73.2 % (40-80); PLATELET COUNT 78 10x3/uL (130-400); RBC 3.69 10x6/uL (4.00-5.40); RDW 17.5 % (11.5-14.5); WBC 7.8 10x3/uL (4.8-10.8)
[2018-10-05 12:45] LABS: ALBUMIN 3.5 g/dL (3.4-5.0); BILIRUBIN - TOTAL 0.59 mg/dL (0.2-1.3); CALCIUM 9.2 mg/dL (8.5-10.1); CARBON DIOXIDE 25.8 mmol/L (21.0-32.0); CREATININE - SERUM 1.1 mg/dL (0.6-1.3); POTASSIUM - SERUM 3.8 mmol/L (3.5-5.1); PROTEIN - SERUM 7.3 g/dL (6.4-8.2)
[2018-10-05 13:39] LABS: PLATELET ESTIMATE DECREASED
[2018-10-05 13:48] LABS: THYROID STIMULATING HORMONE 6.55 uIU/mL (0.36-3.74)
== END | disposition home or self-care (01) ==
LOC: D.LAB 11:47
PROVIDERS: Internal Medicine Pulmonary Disease
DX: J90 Pleural effusion, not elsewhere classified (principal)

== ENCOUNTER → 2018-10-18 16:49 | Outpatient (CLI) | payer MEDICARE, OTHER ==
[2018-08-27 13:46] VITALS: BMI 25.8
[~2018-10-18 16:49] MED LIST changes: +LOVENOX80 MG/0.8 SC
== END | disposition home or self-care (01) ==
LOC: D.CT 16:49
DX: R10.9 Unspecified abdominal pain (principal); I26.99 Other pulmonary embolism without acute cor pulmonale

== ENCOUNTER 2018-10-25 07:43 | Outpatient (CLI) | payer MEDICARE, OTHER ==
[~2018-10-25] VITALS: Ht 167.6 cm; Wt 63.6 kg
[~2018-10-25 07:43] MED LIST changes: -LOVENOX80 MG/0.8 SC
[2018-10-25 08:23] LABS: BASOPHILS 0.3 % (0-2); EOSINOPHILS 2.3 % (0-7); HEMATOCRIT 29.9 % (36.0-48.0); HEMOGLOBIN 9.2 g/dL (12-16); IMMATURE GRANULOCYTES 0.3 % (0-5); MCH 27.3 pg (26.0-34.0); MCHC 30.8 g/dL (31.0-37.0); MCV 88.7 fL (80.0-100.0); MEAN PLATELET VOLUME 10.2 fL (7.4-10.4); MONOCYTES 6.4 % (2-11); NEUTROPHILS 77.7 % (40-80); RBC 3.37 10x6/uL (4.00-5.40); RDW 18.5 % (11.5-14.5); WBC 7.8 10x3/uL (4.8-10.8)
[2018-10-25 08:26] LABS: PLATELET COUNT 228 10x3/uL (130-400)
[2018-10-25 08:27] LABS: ANION GAP 15.9 mmol/L (8-16); CALCIUM 8.4 mg/dL (8.5-10.1); CARBON DIOXIDE 25.1 mmol/L (21.0-32.0)
[2018-10-25 08:28] LABS: APTT 40.3 SECONDS (22.8-39.4); INR 1.19 (0.85-1.17); PROTIME 14.6 SECONDS (11.6-15.0)
[2018-10-25] MEDS ORDERED: LOVENOX80 MG/0.8 SC (09:16)
[2018-10-25 09:25] VITALS: BP 125/59; Ht 167.6 cm; Wt 63.6 kg
== END 2018-10-25 13:47 | disposition home or self-care (01) ==
LOC: D.OPS 07:43 → D.CT 13:00 → D.OPS 13:00
PROVIDERS: Radiology Diagnostic Radiology
DX: R59.0 Localized enlarged lymph nodes (principal)